=== PATIENT | female | born 1965 ===

== ENCOUNTER 2020-12-09 21:43 | Inpatient (IN) ==
[2020-12-09] MEDS ORDERED: 0.9 % SODIUM CHLORIDE 500 ML IV ONE (22:08)
[2020-12-09] MEDS ORDERED: LACTATED RINGERS 1,000 ML IV ONE (22:32)
[2020-12-09 23:04] LABS: POC Blood Urea Nitrogen 12 mg/dL (6-20); POC CO2 20 mmol/L (22-30); POC Calcium, Ionized 1.07 mmEq/L (1.16-1.32); POC Chloride 99 mEq/L (96-108); POC Glucose, Random 133 mg/dL (70-105); POC Hematocrit 30 % (36-48); POC Potassium 3.4 mEql/L (3.3-5.1); POC Sodium 130 mEq/L (133-145)
--- NOTE | 2020-12-09 23:16 | Emergency Department Note ---
Fever HPI General Chief Complaint: Fever Stated Complaint: weakness Time Seen by Provider: 12/09/20 23:05 Source: EMS Mode of arrival: EMS Limitations: no limitations History of Present Illness HPI Narrative: Narrative: Generally healthy 55 o F p/w COVID like Sx. She reports fever, chills, body aches, malaise for the past few days. She has had some SOB, but only w/ coughing, which is dry. She additionally notes diarrhea w/o vomiting, and w/ no blood or mucous present. Sx have been constant w/ no alleviating/aggravating factors present. At home tonight she stood up and had a syncopal episode, prompting her to finally come in. She notes that she had the J&J vaccine months ago. Related Data Home Medications Medication Instructions Recorded Confirmed amlodipine [Norvasc] 10 mg PO QDAY 12/09/19 02/11/20 buspirone 15 mg PO BID 12/09/19 02/11/20 venlafaxine mg PO 12/09/20 Allergies Allergy/AdvReac Type Severity Reaction Status Date / Time latex Allergy Intermediate Rash Verified 12/09/20 21:49 Review of Systems ROS ROS Narrative: Narrative: All systems ED: reviewed and negative except as stated. PFSH Narrative Patient History Narrative: Narrative: Medical/Surgical/Family History All Active Problems COVID-19 (Acute) Pneumonia due to COVID-19 virus (Acute) Acute dehydration (Acute) History of depression (Acute) Diarrhea (Acute) Abdominal pain (Acute) Medical History Anxiety Diarrhea History of depression Hypertension Social History Smoking Status: Never smoker Exam Narrative Narrative: Narrative: General Limitations: no limitations General appearance: Present alert and other (somewhat ill appearing but not tox ic or in acute distress) Head Head: Present atraumatic and normocephalic Eye Eye: Present normal appearance; Absent conjunctival injection ENT ENT: Present normal oropharynx and mucous membranes dry Neck Neck: Present normal inspection; Absent meningismus Chest Chest: Present normal inspection and symmetric chest wall rise Respiratory Respiratory: Present normal lung sounds bilaterally; Absent respiratory distress, rales/crackles, wheezes and stridor Cardiovascular Cardiovascular: Present regular rate, normal rhythm, +S1, +S2 and other (2+ B/L radial pulses); Absent systolic murmur and diastolic murmur Adbominal Abdominal: Present soft and normal bowel sounds; Absent distention and tende rness Extremities Extremities: Absent pedal edema Neurological Neurological: Present alert and oriented X3 Psychiatric Psychiatric: Present normal affect Skin Skin: Present warm (WNL) and dry Course Vital Signs Vital signs: Vital Signs Temperature 100.8 F H 12/09/20 21:45 Respiratory Rate 20 12/09/20 21:45 Temperature 100.8 F H 12/09/20 21:45 Pulse Rate 74 12/10/20 03:27 Respiratory Rate 19 12/10/20 03:00 Blood Pressure 91/69 12/10/20 03:27 Pulse Oximetry (%) 93 12/10/20 03:27 MDM MDM Narrative Medical decision making narrative: Narrative: 55 yo F p/w syncope, COVID like Sx. DDx - COVID19, sepsis, dehydration, CURTIS Pt presented mildly ill appearing w/ RA sats in the 80s. She was started on NC and titrated up to 4L which maintained her sats in the 90s. She was also started on an NS bolus. Her Hx and PE were strongly suggestive of COVID19 and this was confirmed w/a rapid swab here in the ED. Her CXR was likewise c/w COVID19 show ing B/L fluffy infiltrates. There was no evidence of a bacterial process and there was no CURTIS on CMP. Her overall evaluation was c/w dehydration and hypoxia d/t COVID19. She was started on decadron and IVF. While her BP was stable around 110 systolic while laying flat, it did drop to the 70s w/ sitting upright. I did not feel that further IVF would be chappell given the interstitial lung findings on her CXR, and thus instead opted to keep her prone, which kept her BP stable. With an easy fix present for her BP, I did not see an indication for pressors. With regards to her syncope, the Hx was very suggestive of orthostatic syncope, especially given our observations here in the ED. EKG did not show any high risk features, and clinically I did not feel that conditions such as ACS, PE, aortic pathology and CVA were likely. She was accepted by the hospitalist for admission to the ICU for ongoing care. EKG: Sinus rate of 82, normal IN, QRS, QT/QTc intervals. No STEMI, Brugada, WPW, epsilon wave, crochetage pattern, LVH. No previous for comparison. Lab Data Result diagrams: 12/09/20 22:48 12/09/20 22:48 Labs: Lab Results 12/09/20 12/09/20 12/09/20 Range/Units 22:48 22:48 22:48 WBC 6.5 (4.5-11.0) K/mcL RBC 3.52 L (3.59-5.38) M/mcL Hgb 10.8 L (11.2-15.7) g/dL Hct 32.7 L (34.1-44.9) % POC Hct 30 L (36-48) % MCV 92.9 (80.0-100.0) fL MCH 30.7 (26.0-34.0) pg MCHC 33.0 (31.0-36.0) g/dL RDW 11.7 (11.5-14.5) % Plt Count 250 (140-440) K/mcL MPV 9.3 (7.4-10.4) fL Neut % (Auto) 90.5 H (38.0-78.0) % Lymph % (Auto) 5.5 L (15.5-49.0) % [place] % (Auto) 4.0 (1.0-12.0) % Eos % (Auto) 0 (0.0-7.0) % Baso % (Auto) 0 (0.0-2.0) % Lymph # (Auto) 0.36 L (1.50-4.80) K/mcL [place] # (Auto) 0.26 (0.10-0.90) K/mcL Eos # (Auto) 0 (0.00-0.70) K/mcL Baso # (Auto) 0 (0.00-0.30) K/mcL Absolute Neutrophils 5.89 (1.80-8.00) K/mcL POC Sodium 130 L (133-145) mEq/L Sodium 127 L (133-145) mmol/L POC Potassium 3.4 (3.3-5.1) mEql/L Potassium 3.6 (3.3-5.1) mmol/L POC Chloride 99 (96-108) mEq/L Chloride 97 (96-108) mmol/L Carbon Dioxide 18 L (22-30) mmol/L POC Total CO2 20 L (22-30) mmol/L Anion Gap 12.0 (8.0-16.0) POC BUN 12 (6-20) mg/dL BUN 14 (6-20) mg/dL Creatinine 0.9 (0.6-1.1) mg/dL POC Creatinine 1.0 (0.6-1.2) mg/dL GFR Calculation 71 Glucose 129 H (70-105) mg/dL POC Glucose 133 H (70-105) mg/dL Calcium 8.0 L (8.6-10.4) mg/dL POC WB Ioniz Calcium 1.07 L (1.16-1.32) mmEq/L Total Bilirubin < 0.2 (0.1-1.0) mg/dL AST 33 H (<32) U/L ALT 11 (<40) U/L Alkaline Phosphatase 51 (39-117) U/L Total Protein 6.6 (5.9-8.4) gm/dL Albumin 3.2 (3.2-5.2) gm/dL Globulin 3.4 (2.2-3.7) gm/dL Albumin/Globulin Ratio 0.9 L (1.0-2.3) ED POC Tests ED POC Tests: NGA - SARS Antigen Positive CC TIME Critical Care Time Total Critical Care Time: 45 Attestation: The very real possibility of serious illness or existed without emergent intervention and required my utmost attention. Organ systems at risk included CVS, pulmonary. Interventions included decadron, IVF, hospitalist consult. Discharge Plan Patient/Caregiver Discharge Instructions Pt seen by ICT DEVELOPER/PA only: No Clinical Impression: COVID-19, Pneumonia due to COVID-19 virus, Acute dehydration Patient Disposition: Xfer As Inpt ([facility]) Condition: Serious Discharge Date/Time: 12/10/20 03:15 Discharge Location: [facility] Inpatient Discharge Comment: RM 120B
[2020-12-10 00:22] LABS: Basophils # (Auto) 0 K/mcL (0.00-0.30); Basophils % (Auto) 0 % (0.0-2.0); Eosinophils # (Auto) 0 K/mcL (0.00-0.70); Eosinophils % (Auto) 0 % (0.0-7.0); Hematocrit 32.7 % (34.1-44.9); Hemoglobin 10.8 g/dL (11.2-15.7); Lymphocytes # (Auto) 0.36 K/mcL (1.50-4.80); Lymphocytes % (Auto) 5.5 % (15.5-49.0); Mean Cell Volume 92.9 fL (80.0-100.0); Mean Platelet Volume 9.3 fL (7.4-10.4); Monocytes # (Auto) 0.26 K/mcL (0.10-0.90); Neutrophils % (Auto) 90.5 % (38.0-78.0); Platelet Count 250 K/mcL (140-440); RBC 3.52 M/mcL (3.59-5.38); Red Cell Distribution Width 11.7 % (11.5-14.5); WBC 6.5 K/mcL (4.5-11.0)
[2020-12-10 00:37] LABS: ALT/SGPT 11 U/L (<40); AST/SGOT 33 U/L (<32); Albumin 3.2 gm/dL (3.2-5.2); Albumin/Globulin Ratio 0.9 (1.0-2.3); Alkaline Phosphatase 51 U/L (39-117); Bilirubin,Total < 0.2 mg/dL (0.1-1.0); Blood Urea Nitrogen 14 mg/dL (6-20); Carbon Dioxide 18 mmol/L (22-30); Chloride 97 mmol/L (96-108); Globulin 3.4 gm/dL (2.2-3.7); Glomerular Filtration Rate 71; Glucose 129 mg/dL (70-105)
[2020-12-10] MEDS ORDERED: DEXAMETHASONE 10 MG/ML VIAL IV ONE (00:37)
[2020-12-10] MEDS ORDERED: REMDESIVIR 200 MG in 0.9 % SODIUM CHLORIDE 250 ML IV ONE (02:01)
--- NOTE | 2020-12-10 06:25 | XRay Report ---
CLINICAL INFORMATION: sob COMPARISON: None. FINDINGS: Heart size, mediastinum and pulmonary vessels are normal. Moderate, yet vague, infiltrates have developed in the right mid and both lower lungs. No effusions. IMPRESSION: Moderate, yet vague, infiltrates in the right mid and both lower lungs. Infection or, less likely, aspiration should be considered Interpreted and Authenticated by: Neo Alonzo 12/10/20
--- NOTE | 2020-12-10 07:21 | Internal Med History&Physical ---
HPI History of Present Illness Patient information: Note initiated : 12/10/20 at 7:10 am Service Date, if different from initiated Date: [] Patient: Areli Bird a 55 y/o F admitted on 12/10/20 for weakness. Chief Complaint: [] History of present illness: Ms. Bird is a 55 year old F Patient reports feeling ill for 2 weeks weakness dizzy nausea diarrhea, fevers chills. She had some shortness of breath but only with coughing which was dry. She has diarrhea, c.diff negative While at home tonight she stood up and had a syncopal episode. Rapid Covid test was positive She was hypoxic requiring oxygen J&J vaccine months ago Review of Systems: Pertinent positives as above. Denies headache/vomiting/chest or abdominal pain. Otherwise see above. PFSH PFSH All Active Problems COVID-19 (Acute) Pneumonia due to COVID-19 virus (Acute) Acute dehydration (Acute) History of depression (Acute) Diarrhea (Acute) Abdominal pain (Acute) Medical History Anxiety Diarrhea History of depression Hypertension MEDS/ALLERGIES Home Medications and Allergies Home Medications Medication Instructions Recorded Confirmed Type amlodipine [Norvasc] 10 mg PO QDAY 12/09/19 12/10/20 History buspirone 15 mg PO BID 12/09/19 12/10/20 History venlafaxine 75 mg PO QDAY 12/09/20 12/10/20 History diclofenac sodium 2 g TOPICAL QID PRN 12/10/20 12/10/20 History trazodone 12.5 mg PO QHS PRN 12/10/20 12/10/20 History Allergies Allergy/AdvReac Type Severity Reaction Status Date / Time glecaprevir [From Mavyret] Allergy Severe Difficulty Verified 12/10/20 05:20 Breathing pibrentasvir [From Mavyret] Allergy Severe Difficulty Verified 12/10/20 05:20 Breathing latex Allergy Intermediate Rash Verified 12/10/20 05:20 EXAM Constitutional Vitals: Temp Pulse Resp BP Pulse Ox 97.2 F 76 29 H 97/55 93 12/10/20 03:48 12/10/20 06:02 12/10/20 06:02 12/10/20 06:02 12/10/20 06:02 Exam: General: Alert, Awake, No acute Distress Eyes/N/T: EOMI, PERRL, Head/Neck: neck supple, normocephalic atraumatic CV: RRR, No murmurs, normal s1/s2 Pulm: Clear b/l, no wheezing/rhonchi/rales Abd: soft, nontender, +BS x4 Ext: no clubbing/cyanosis/edema Neuro: Alert, no focal deficits, moves all extremities, CN 2-12 grossly intact, symmetrical strength b/l upper/lower, sensations intact b/l upper/lower Skin: warm/dry DATA Data Completed and Pending Labs: Labs from last 24 hours 12/09/20 12/09/20 12/09/20 22:48 22:48 22:48 WBC 6.5 RBC 3.52 L Hgb 10.8 L Hct 32.7 L POC Hct 30 L MCV 92.9 MCH 30.7 MCHC 33.0 RDW 11.7 Plt Count 250 MPV 9.3 Neut % (Auto) 90.5 H Lymph % (Auto) 5.5 L [place] % (Auto) 4.0 Eos % (Auto) 0 Baso % (Auto) 0 Lymph # (Auto) 0.36 L [place] # (Auto) 0.26 Eos # (Auto) 0 Baso # (Auto) 0 Absolute Neutrophils 5.89 POC Sodium 130 L Sodium 127 L POC Potassium 3.4 Potassium 3.6 POC Chloride 99 Chloride 97 Carbon Dioxide 18 L POC Total CO2 20 L Anion Gap 12.0 POC BUN 12 BUN 14 Creatinine 0.9 POC Creatinine 1.0 GFR Calculation 71 Glucose 129 H POC Glucose 133 H Calcium 8.0 L POC WB Ioniz Calcium 1.07 L Total Bilirubin < 0.2 AST 33 H ALT 11 Alkaline Phosphatase 51 Total Protein 6.6 Albumin 3.2 Globulin 3.4 Albumin/Globulin Ratio 0.9 L A/P Narrative A/P Narrative: A: *Covid pneumonia: - *Acute hypoxic respiratory failure: -on 3L NC *Diarrhea: C. difficile negative *Hyponatremia: From volume loss *Volume depletion w/Orthostatic Hypotension & Syncope: *HTN: *Depression/anxiety: * P: -Rem/dexamethasone -O2 support, wean as able -Proning, out of bed to chair, mobilization, ambulation in room -IS/Acapella, prn nebs/IH's -s/p IVF -Hold Norvasc for low BP -cont psych meds - -ppx: lovenox Time Spent With Patient Time: Total time spent is greater than 50% in coordination of care (as documented) at patient's floor/unit and/or counseling patient: QUALITY VTE Deep Vein Thrombosis/Pulmonary Embolism Present on Admission: No
[2020-12-10] MEDS ORDERED: ONDANSETRON 4 MG/2 ML VIAL IV PRN (08:40)
[2020-12-10] MEDS ORDERED: POTASSIUM CHLORIDE 40 MEQ in DEXTROSE 5% IN WATER 500 ML IV PRN (08:40)
[2020-12-10] MEDS ORDERED: POTASSIUM CHLORIDE 20 MEQ TABLET PO PRN ×2 (08:40)
[2020-12-10] MEDS ORDERED: IPRATROPIUM/ALBUTEROL 3 ML AMPUL.NEB NEB PRN (08:40)
[2020-12-10] MEDS ORDERED: MAGNESIUM SULFATE 2 GM/50 ML BAG IV PRN (08:40)
[2020-12-10] MEDS ORDERED: Diclofenac Sodium 1 % gel TOPICAL PRN (08:42)
[2020-12-10] MEDS ORDERED: ENOXAPARIN 40 MG/0.4 ML SYRINGE SQ SCH (09:00)
[2020-12-10] MEDS: guaiFENesin/CODEINE 10 ML UDC PO PRN ×2 (09:11→16:58)
[2020-12-10] MEDS: DEXAMETHASONE 10 MG/ML VIAL IV SCH (09:11)
[2020-12-10] MEDS: ACETAMINOPHEN 325 MG TABLET PO PRN ×2 (09:12→18:44)
[2020-12-10] MEDS: busPIRone 15 MG TABLET PO SCH ×2 (09:19→20:39)
[2020-12-10] MEDS: VENLAFAXINE 75 MG CAP.XL.24H PO SCH (09:19)
[2020-12-10] MEDS: 0.9 % SODIUM CHLORIDE 10 ML SYRINGE IV SCH ×4 (12:13→22:00)
[2020-12-10] MEDS: REMDESIVIR 100 MG in 0.9 % SODIUM CHLORIDE 250 ML IV SCH (16:50)
[2020-12-10] MEDS: traZODone HCL 50 MG TABLET PO PRN (20:39)
[2020-12-10] MEDS: ENOXAPARIN 40 MG/0.4 ML SYRINGE SQ SCH (20:40)
[2020-12-11] MEDS: guaiFENesin/CODEINE 10 ML UDC PO PRN ×3 (01:40→14:27)
[2020-12-11] MEDS: ACETAMINOPHEN 325 MG TABLET PO PRN ×3 (01:40→21:26)
[2020-12-11] MEDS: LOPERAMIDE 2 MG CAPSULE PO PRN ×2 (05:06→11:18)
[2020-12-11] MEDS ORDERED: LOPERAMIDE 2 MG CAPSULE PO ONE (05:09)
[2020-12-11] MEDS: 0.9 % SODIUM CHLORIDE 10 ML SYRINGE IV SCH ×4 (05:11→21:28)
[2020-12-11 07:41] LABS: Basophils # (Auto) 0 K/mcL (0.00-0.30); Basophils % (Auto) 0 % (0.0-2.0); Eosinophils # (Auto) 0 K/mcL (0.00-0.70); Eosinophils % (Auto) 0 % (0.0-7.0); Hematocrit 38.7 % (34.1-44.9); Hemoglobin 12.4 g/dL (11.2-15.7); Lymphocytes # (Auto) 0.56 K/mcL (1.50-4.80); Lymphocytes % (Auto) 8.9 % (15.5-49.0); Mean Cell Volume 95.1 fL (80.0-100.0); Mean Platelet Volume 9.5 fL (7.4-10.4); Monocytes # (Auto) 0.49 K/mcL (0.10-0.90); Monocytes % (Auto) 7.8 % (1.0-12.0); Neutrophils % (Auto) 83.3 % (38.0-78.0); Platelet Count 291 K/mcL (140-440); RBC 4.07 M/mcL (3.59-5.38); Red Cell Distribution Width 11.7 % (11.5-14.5); WBC 6.3 K/mcL (4.5-11.0)
[2020-12-11 08:24] LABS: ALT/SGPT 13 U/L (<40); AST/SGOT 27 U/L (<32); Albumin 3.4 gm/dL (3.2-5.2); Alkaline Phosphatase 56 U/L (39-117); Bilirubin,Total < 0.2 mg/dL (0.1-1.0); Blood Urea Nitrogen 23 mg/dL (6-20); Calcium 8.9 mg/dL (8.6-10.4); Carbon Dioxide 22 mmol/L (22-30); Chloride 103 mmol/L (96-108); Globulin 3.5 gm/dL (2.2-3.7); Glomerular Filtration Rate 96; Glucose 116 mg/dL (70-105)
--- NOTE | 2020-12-11 08:46 | Internal Med Progress Note ---
SUBJECTIVE Subjective Patient information: Note initiated : 12/11/20 at 8:37 am Service Date, if different from initiated Date: [] Patient: Areli Bird a 55 y/o F admitted on 12/10/20 for weakness. Chief Complaint: [CoVID pneumonia] Interval history: History of present illness: Ms. Bird is a 55 year old F Patient reports feeling ill for 2 weeks weakness dizzy nausea diarrhea, fevers chills. She had some shortness of breath but only with coughing which was dry. She has diarrhea, c.diff negative While at home tonight she stood up and had a syncopal episode. Rapid Covid test was positive She was hypoxic requiring oxygen J&J vaccine months ago 12/11: Afebrile overnight. Oxygen requirement down to 4L/min via nasal cannula. c/o mild SOB. Denies cough or sputum production. Denies wheezing. Denies chest pain. Denies fever or chills or sweating. Constitutional Vitals: Vital Signs Temp Pulse Resp BP Pulse Ox 36.4 C 62 16 111/67 98 12/11/20 08:01 12/10/20 12:01 12/11/20 08:01 12/11/20 08:01 12/11/20 08:01 Period Temp Pulse Resp BP Sys/Zimmerman Pulse Ox Last 24 Hr 36.1 C-36.8 C 33-62 14-32 74-132/49-92 93-99 Intake and Output 12/10/20 12/11/20 12/11/20 21:59 05:59 13:59 Intake Total 250 240 Output Total 600 700 Balance -350 -460 Weight 68.719 kg Intake & Output: Intake & Output 12/10/20 12/11/20 12/11/20 21:59 05:59 13:59 Intake Total 250 240 Output Total 600 700 Balance -350 -460 Weight 68.719 kg Intake: IV 250 Veklury 100 mg In Sodium 250 Chloride 0.9% 250 ml @ 500 mls/ hr IV Q24H [facility] Rx#:[id number] Oral 0 240 Output: Void Amount 600 Urine/Stool Mix 700 Other: Stool Size Moderate Stool Color Brown Stool Consistency Loose Loose # Bowel Movements 1 General appearance: cooperative and no acute distress Head Head exam: Present atraumatic and normocephalic Eye Eye exam: Present EOMI and PERRL ENT ENT exam: Present mucous membranes moist, normal exam and normal external ear exam Additional comments: Nasal cannula in place Neck Neck exam: Present normal inspection; Absent lymphadenopathy, tenderness and thyromegaly Respiratory Respiratory exam: Present rhonchi; Absent accessory muscle use, respiratory distress and wheezes Cardiovascular Cardiovascular exam: Present normal rate and rhythm; Absent JVD GI/Abdominal GI/Abdominal exam: Present normal bowel sounds and soft; Absent organomegaly and tenderness Extremities Exam Extremities exam: Present full ROM, normal capillary refill and normal inspection; Absent tenderness Neurological Exam Neurological exam: Present alert, CN II-XII intact and oriented X3; Absent motor sensory deficit Psychiatric Psychiatric exam: Present normal affect and normal mood; Absent anxious and depressed Skin Skin exam: Present dry and intact OBJ DATA Labs CBC & Chem 7: 12/11/20 05:34 12/11/20 05:34 Labs: Abnormal Lab Results 12/11/20 12/11/20 12/09/20 05:34 05:34 22:48 RBC Hgb Hct POC Hct Neut % (Auto) 83.3 H Lymph % (Auto) 8.9 L Lymph # (Auto) 0.56 L POC Sodium Sodium 127 L Carbon Dioxide 18 L POC Total CO2 BUN 23 H Glucose 116 H 129 H POC Glucose Calcium 8.0 L POC WB Ioniz Calcium AST 33 H Albumin/Globulin Ratio 0.9 L 12/09/20 12/09/20 22:48 22:48 RBC 3.52 L Hgb 10.8 L Hct 32.7 L POC Hct 30 L Neut % (Auto) 90.5 H Lymph % (Auto) 5.5 L Lymph # (Auto) 0.36 L POC Sodium 130 L Sodium Carbon Dioxide POC Total CO2 20 L BUN Glucose POC Glucose 133 H Calcium POC WB Ioniz Calcium 1.07 L AST Albumin/Globulin Ratio Meds: Medications Acetaminophen (Acetaminophen 325 Mg Tablet) 650 mg PO Q6HP PRN PRN Reason: PAIN/FEVER > 101 Last Admin: 12/11/20 01:40 Dose: 650 mg Documented by: Albuterol/Ipratropium (Ipratropium/Albuterol 3 Ml Ampul.Neb) 3 ml NEB Q4HP PRN PRN Reason: Shortness Of Breath Buspirone HCl (Buspirone 15 Mg Tablet) 15 mg PO BID JUAN Last Admin: 12/10/20 20:39 Dose: 15 mg Documented by: Dexamethasone (Dexamethasone 10 Mg/Ml Vial) 6 mg IV DAILY [facility] Last Admin: 12/10/20 09:11 Dose: 6 mg Documented by: Enoxaparin Sodium (Enoxaparin 40 Mg/0.4 Ml Syringe) 40 mg SQ BID [facility] Last Admin: 12/10/20 20:40 Dose: 40 mg Documented by: Guaifenesin/Codeine Phosphate (Guaifenesin/Codeine 10 Ml Udc) 10 ml PO Q4HP PRN PRN Reason: Cough Last Admin: 12/11/20 08:21 Dose: 10 ml Documented by: REMDESIVIR 100 mg/ Sodium (Chloride) 250 mls @ 500 mls/hr IV Q24H [facility] Stop: 12/13/20 17:29 Last Infusion: 12/10/20 17:56 Dose: Infused Documented by: Potassium Chloride 40 meq/ (Dextrose) 520 mls @ 130 mls/hr IV UD PRN PRN Reason: Potassium < 3 Magnesium Sulfate (Magnesium Sulfate) 2 gm in 50 mls @ 50 mls/hr IV UD PRN PRN Reason: Magnesium </= 1.6 Loperamide HCl (Loperamide 2 Mg Capsule) 2 mg PO PRN PRN PRN Reason: Diarrhea Last Admin: 12/11/20 05:06 Dose: 2 mg Documented by: Ondansetron HCl (Ondansetron 4 Mg/2 Ml Vial) 4 mg IV Q4HP PRN PRN Reason: Nausea And Vomiting Diclofenac Sodium 1 (% Gel) 2 dose TOPICAL QIDP PRN PRN Reason: Pain Potassium Chloride (Potassium Chloride 20 Meq Tablet) 40 meq PO UD PRN PRN Reason: Potssium is 3-3.5 Potassium Chloride (Potassium Chloride 20 Meq Tablet) 40 meq PO UD PRN PRN Reason: Potassium < 3 Sodium Chloride (0.9 % Sodium Chloride 10 Ml Syringe) 10 ml IV Q8 [facility] Last Admin: 12/11/20 05:11 Dose: 10 ml Documented by: Trazodone HCl (Trazodone Hcl 50 Mg Tablet) 12.5 mg PO HSP PRN PRN Reason: Insomnia Last Admin: 12/10/20 20:39 Dose: 12.5 mg Documented by: Venlafaxine HCl (Venlafaxine 75 Mg Cap.Xl.24h) 75 mg PO QDAY [facility] Last Admin: 12/10/20 09:19 Dose: 75 mg Documented by: A/P Assessment and plan (1) Pneumonia due to COVID-19 virus: Status: Acute (2) History of depression: Status: Acute Narrative A/P Narrative: Assessment and Plans: 1. CoVID pneumonia: Stays in inpatient PCU Supplemental oxygen titrate to achieve spo2 >=92% Isolation: airborne and contact CXR every few days Remdesivir Dexamethasone Lovenox Tylenol PRN fever cbc w/ auto diff in the morning to trend WBC 2. h/o depression: Stable. Continue Effexor GI ppx: not currently indicated DVT ppx: Lovenox Code status: Full Prognosis: guarded Disposition: inpatient PCU Time Spent With Patient Time: Total time spent is greater than 50% in coordination of care (as docume nted) at patient's floor/unit and/or counseling patient: Total time spent with greater than 50% in coordination of care (as documented) at patient's floor/unit and/or counseling patient:: 25 - 35 minutes QUALITY VTE Deep Vein Thrombosis/Pulmonary Embolism Present on Admission: No
[2020-12-11] MEDS ORDERED: guaiFENesin/DEXTROMETHORPHAN ORAL SOL PO PRN (08:53)
[2020-12-11] MEDS ORDERED: IPRATROPIUM/ALBUTEROL 3 ML AMPUL.NEB NEB PRN (08:53)
[2020-12-11] MEDS: ENOXAPARIN 40 MG/0.4 ML SYRINGE SQ SCH ×2 (09:44→21:25)
[2020-12-11] MEDS: DEXAMETHASONE 10 MG/ML VIAL IV SCH (09:45)
[2020-12-11] MEDS: busPIRone 15 MG TABLET PO SCH ×2 (09:49→21:25)
[2020-12-11] MEDS: VENLAFAXINE 75 MG CAP.XL.24H PO SCH (09:49)
[2020-12-11] MEDS ORDERED: METOCLOPRAMIDE 10 MG/2 ML VIAL IV PRN (10:22)
[2020-12-11] MEDS: REMDESIVIR 100 MG in 0.9 % SODIUM CHLORIDE 250 ML IV SCH (16:25)
--- NOTE | 2020-12-11 16:42 | EKG ---
[facility] Test Date: 2020-12-09 Pat Name: Areli Bird Department: ED Room: Gender: Female Commissary Assistant: [id number] : 1965 Requested By: Al Ovalle Order Number: [id number] Reading MD: Maurilio Kaiser Measurements Intervals [place] Rate: 82 P: -9 OR: 167 QRS: 64 QRSD: 90 T: 70 QT: 373 QTc: 436 Interpretive Statements Sinus rhythm Electronically Signed On 12-11-2020 16:42:01 PDT by Maurilio Kaiser /store/M0/[id number]
--- NOTE | 2020-12-11 16:44 | EKG ---
[facility] Test Date: 2020-12-10 Pat Name: Areli Bird Department: ICU Room: 120B Gender: Female Wholesaler: : 1965 Requested By: Curly Hill Order Number: [id number] Reading MD: Maurilio Kaiser Measurements Intervals [place] Rate: 64 P: -2 HI: 192 QRS: 50 QRSD: 80 T: 73 QT: 400 QTc: 413 Interpretive Statements SINUS RHYTHM Not significantly changed from prior Electronically Signed On 12-11-2020 16:44:12 PDT by Maurilio Kaiser /store/M0/[id number]/[id number]
[2020-12-11] MEDS: traZODone HCL 50 MG TABLET PO PRN (21:26)
[2020-12-12] MEDS: guaiFENesin/CODEINE 10 ML UDC PO PRN ×2 (04:39→08:55)
[2020-12-12] MEDS: 0.9 % SODIUM CHLORIDE 10 ML SYRINGE IV SCH (04:40)
[2020-12-12 07:33] LABS: Basophils # (Auto) 0.01 K/mcL (0.00-0.30); Basophils % (Auto) 0.1 % (0.0-2.0); Eosinophils # (Auto) 0 K/mcL (0.00-0.70); Eosinophils % (Auto) 0 % (0.0-7.0); Hematocrit 37.4 % (34.1-44.9); Lymphocytes # (Auto) 0.66 K/mcL (1.50-4.80); Lymphocytes % (Auto) 6.8 % (15.5-49.0); Mean Cell Volume 94.2 fL (80.0-100.0); Mean Corpuscular HGB Conc 32.1 g/dL (31.0-36.0); Mean Platelet Volume 9.2 fL (7.4-10.4); Monocytes # (Auto) 0.66 K/mcL (0.10-0.90); Monocytes % (Auto) 6.8 % (1.0-12.0); Neutrophils % (Auto) 86.3 % (38.0-78.0); Platelet Count 393 K/mcL (140-440); RBC 3.97 M/mcL (3.59-5.38); Red Cell Distribution Width 11.9 % (11.5-14.5); WBC 9.7 K/mcL (4.5-11.0)
[2020-12-12 07:56] LABS: ALT/SGPT 12 U/L (<40); AST/SGOT 22 U/L (<32); Albumin 2.9 gm/dL (3.2-5.2); Albumin/Globulin Ratio 0.8 (1.0-2.3); Alkaline Phosphatase 80 U/L (39-117); Bilirubin,Total < 0.2 mg/dL (0.1-1.0); Blood Urea Nitrogen 23 mg/dL (6-20); Calcium 8.3 mg/dL (8.6-10.4); Carbon Dioxide 22 mmol/L (22-30); Chloride 105 mmol/L (96-108); Globulin 3.7 gm/dL (2.2-3.7); Glomerular Filtration Rate 96; Glucose 110 mg/dL (70-105); Thyroid Stimulating Hormone 1.52 uIU/mL (0.27-5.01)
[2020-12-12] MEDS: DEXAMETHASONE 10 MG/ML VIAL IV SCH (08:54)
[2020-12-12] MEDS: ENOXAPARIN 40 MG/0.4 ML SYRINGE SQ SCH (08:54)
[2020-12-12] MEDS: busPIRone 15 MG TABLET PO SCH (08:54)
[2020-12-12] MEDS: VENLAFAXINE 75 MG CAP.XL.24H PO SCH (08:54)
--- NOTE | 2020-12-12 10:29 | Discharge Summary ---
Discharge Provider Provider Patient information: Note initiated : 12/12/20 at 10:27 am Service Date, if different from initiated Date: [] Patient: Areli Bird 55 y/o F admitted on 12/10/20 for weakness. Chief Complaint: [CoVID pneumonia] Date of admission: 12/10/20 03:15 Discharge date: 12/12/20 Primary care physician: Unknown Unknown Consults: 12/10/20 Consult to Physician [CONS] Stat Comment: Consulting Provider: Curly Hill Reason For Exam: Physician to Consult Discharge Meds Discharge Medications Home Medications amlodipine [Norvasc] 10 mg PO QDAY 12/09/19 [History Confirmed 12/10/20 Last Taken 12/09/20] buspirone 15 mg PO BID 12/09/19 [History Confirmed 12/10/20 Last Taken 12/09/20] venlafaxine 75 mg PO QDAY 12/09/20 [History Confirmed 12/10/20 Last Taken 12/09/20] diclofenac sodium 2 g TOPICAL QID PRN 12/10/20 [History Confirmed 12/10/20 Last Taken Unknown] trazodone 12.5 mg PO QHS PRN 12/10/20 [History Confirmed 12/10/20 Last Taken 11/03/20] codeine-guaifenesin [Guaiatussin AC] 10 ml PO Q4HP PRN 10 Days #1 bottle 12/12/20 [Rx Last Taken Unknown] loperamide 2 mg PO PRN PRN #10 cap 12/12/20 [Rx Last Taken Unknown] COURSE Hospital Course Hospital course: Patient was admitted on December 10, 2020 for Covid pneumonia. Supplemental oxygen's, remdesivir, dexamethasone, anticoagulations in terms of Lovenox were all provided extended Covid pneumonia management. By December 12, patient oxygen requirement went down to 2 to 4 L/min, and patient has been afebrile for more than 24 hours, and the leukocytosis resolved, and otherwise reached clinical stability. As such, decision was made to discharge her home with prescriptions of home oxygen's. 1 to 2 weeks PCP follow-up appointment made for the patient. All questions were answered prior to patient being physically discharged. Discharge diagnosis: CoVID pneumonia Time Spent with Patient Time attestation: Total time spent providing and/or coordinating discharge services: Patient was admitted on December 10, 2020 for Covid pneumonia. Supplemental oxygen's, remdesivir, dexamethasone, anticoagulations in terms of Lovenox were all provided extended Covid pneumonia management. By December 12, patient oxygen requirement went down to 2 to 4 L/min, and patient has been afebrile for more than 24 hours, and the leukocytosis resolved, and otherwise reached clinical stability. As such, decision was made to discharge her home with prescriptions of home oxygen's. 1 to 2 weeks PCP follow-up appointment made for the patient. All questions were answered prior to patient being physically discharged. EXAM Constitutional Vitals: Temp Pulse Resp BP Pulse Ox 36.2 C 59 L 24 H 119/67 98 12/12/20 08:01 12/12/20 08:00 12/12/20 10:00 12/12/20 10:00 12/12/20 10:00 General appearance: cooperative and no acute distress Head Head exam: Present atraumatic and normocephalic Eye Eye exam: Present EOMI and PERRL ENT ENT exam: Present mucous membranes moist, normal exam and normal external ear exam Additional comments: Nasal cannula in place Neck Neck exam: Present normal inspection; Absent lymphadenopathy, tenderness and thyromegaly Respiratory Respiratory exam: Present rhonchi; Absent accessory muscle use, respiratory distress and wheezes Cardiovascular Cardiovascular exam: Present normal rate and rhythm; Absent JVD GI/Abdominal GI/Abdominal exam: Present normal bowel sounds and soft; Absent organomegaly and tenderness Extremities Exam Extremities exam: Present full ROM, normal capillary refill and normal inspection; Absent tenderness Neurological Exam Neurological exam: Present alert, CN II-XII intact and oriented X3; Absent motor sensory deficit Psychiatric Psychiatric exam: Present normal affect and normal mood; Absent anxious and depressed Skin Skin exam: Present dry and intact Discharge Data Data Completed and Pending Labs on day of discharge: Labs from last 24 hours 12/12/20 12/12/20 05:54 05:53 WBC 9.7 RBC 3.97 Hgb 12.0 Hct 37.4 MCV 94.2 MCH 30.2 MCHC 32.1 RDW 11.9 Plt Count 393 MPV 9.2 Neut % (Auto) 86.3 H Lymph % (Auto) 6.8 L [place] % (Auto) 6.8 Eos % (Auto) 0 Baso % (Auto) 0.1 Lymph # (Auto) 0.66 L [place] # (Auto) 0.66 Eos # (Auto) 0 Baso # (Auto) 0.01 Absolute Neutrophils 8.33 H Sodium 140 Potassium 4.0 Chloride 105 Carbon Dioxide 22 Anion Gap 13.0 BUN 23 H Creatinine 0.7 GFR Calculation 96 Glucose 110 H Calcium 8.3 L Total Bilirubin < 0.2 AST 22 ALT 12 Alkaline Phosphatase 80 Total Protein 6.6 Albumin 2.9 L Globulin 3.7 Albumin/Globulin Ratio 0.8 L TSH 1.52 Discharge Plan Patient/Caregiver Discharge Instructions Activity: increase activity as tolerated Diet: Regular Diet Prescriptions: New loperamide 2 mg Capsule 2 mg PO PRN PRN (Reason: Diarrhea) Qty: 10 RF: 0 codeine-guaifenesin [Guaiatussin AC] 10-100 mg/5 mL Liquid 10 ml PO Q4HP PRN (Reason: Cough) 10 Days Qty: 1 RF: 0 Continued amlodipine [Norvasc] 10 mg Tablet 10 mg PO QDAY RF: 0 buspirone 15 mg Tablet 15 mg PO BID RF: 0 venlafaxine 75 mg capsule,extended release 24hr 75 mg PO QDAY RF: 0 trazodone 50 mg tablet 12.5 mg PO QHS PRN (Reason: Insomnia) RF: 0 diclofenac sodium 1 % gel 2 g TOPICAL QID PRN (Reason: Pain) RF: 0 Follow Up Plan Follow up with: Unknown,Unknown [Primary Care Provider] - Patient Disposition: Home, Self-Care Prognosis: Serious Rehab Potential: Good I certify that the patient requires SNF services: No Overall status at discharge: patient is progressing back to baseline Discharge Orders: Discharge Order (Routine); Ordered 12/12/20 Ordered By: Chapin IRWIN VTE Deep Vein Thrombosis/Pulmonary Embolism Present on Admission: No
[2020-12-12] MEDS: REMDESIVIR 100 MG in 0.9 % SODIUM CHLORIDE 250 ML IV SCH (11:17)
== END 2020-12-12 13:23 | disposition home or self-care (01) | DRG 177 ==
LOC: ED 21:43 → ICU 12-10 03:15
PROVIDERS: ADMIT Internal Medicine; ATTEND Internal Medicine